=== PATIENT | female | born 1990 | race Caucasian/White ===

== ENCOUNTER 2016-11-21 03:24 | Emergency (ER) | payer SELFPAY ==
[2016-11-21 03:20] VITALS: O2SAT 85
[~2016-11-21 03:24] MED LIST: BACT800T5 PO
[2016-11-21 03:25] VITALS: BP 138/99; PULSE 166; RESP 40; O2SAT 85
[2016-11-21 03:35] VITALS: BP 128/51
[2016-11-21 03:53] LABS: I-STAT POTASSIUM 4.5 MMOL/L (3.5-4.9)
--- NOTE | 2016-11-21 04:16 | PD ---
HPI Chief Complaint: Respiratory distress Time Seen by Provider: 04:14 Travel History International Travel<30 days: No (unknown) Contact w/Intl Traveler<30days: No (unknown) History of Present Illness HPI 26yo F with PMH of IVDA and asthma here with respiratory distress. Pt was brought in [facility] and has been sob for 2 days. As per [facility], pt was saturating in the 70s at room air and was saturating in the 80s on 100% nonrebreather when she arrived. Pt had refused any albuterol treatments as per [facility] because she did not want how it made her feel. Pt did admit to IV dilaudid. Pt was in severe respiratory distress when she arrived and could not give any more information. Pt emergently intubated. PFSH Past Medical History Cancer: No Cardiovascular Problems: No Endocrine: No Genitourinary: No Immune Disorder: No Musculoskeletal: Yes Neurologic: Yes Psychiatric: No Reproductive: No Respiratory: No Migraines: Yes : 1 Para: 1 Past Surgical History Other Surgery: No Social History Alcohol Use: No Tobacco Use: Yes (half pack a day) Substance Use: Yes (DILAUDID DAILY, HEROIN UNTIL LAST YEAR, COKE OCCASIONALLY) Allergies-Medications (Allergen,Severity, Reaction): Coded Allergies: *MDRO Multi-Drug Resistant Organism (Verified Adverse Reaction, Unknown, 07/26/16) MRSA (chest wound) - 08/2014 MRSA PCR Screen POSITIVE - 09/01/2015 Reported Meds & Prescriptions Reported Meds & Active Scripts Active Bactrim DS (Sulfamethoxazole-Trimethoprim) 800-160 Mg Tab 1 Tab PO BID Review of Systems ROS Limitations: Clinical Condition Physical Exam Narrative GENERAL: 26yo F in severe respiratory distress. SKIN: Pale and diaphoretic. HEAD: Atraumatic. Normocephalic. NECK: Trachea midline. No JVD. CARDIOVASCULAR: Tachycardic. RESPIRATORY: + suprasternal accessory muscle use. Poor air movement. Decreased breath sounds in both lungs with some wheezing. Pt is very tachypneic and unable to answer more than a word at a time. Saturating in the low to mid 80s on 100% nonrebreather mask. GASTROINTESTINAL: Abdomen soft, non-tender, nondistended. No rebound tenderness or guarding. MUSCULOSKELETAL: No obvious deformities. No clubbing. No cyanosis. No edema. Although there are multiple scars noted in extremities. NEUROLOGICAL: Awake and alert but in distress. Pt is tripoding and unable to assess further. Data Data Last Documented VS Vital Signs Date Time Temp Pulse Resp B/P Pulse Ox O2 Delivery O2 Flow Rate FiO2 11/21/16 03:35 128/51 11/21/16 03:25 166 40 85 Non-Rebreather 15 11/21/16 03:20 100 Orders I-Stat Creatinine (11/21/16 03:40) I-Stat Profile (11/21/16 03:40) Epinephrine (1:10,000) Inj (Epinephrine (11/21/16 05:00) Sodium Bicarbonate 8.4% Inj (Sodium Bica (11/21/16 05:00) Calcium Chloride Inj (Calcium Chloride I (11/21/16 05:00) Calcium Chloride Inj (Calcium Chloride I (11/21/16 05:00) Epinephrine (1:10,000) Inj (Epinephrine (11/21/16 05:00) Magnesium Sulfate Inj (Magnesium Sulfate (11/21/16 05:00) Naloxone Inj (Narcan Inj) (11/21/16 05:00) Sodium Bicarbonate 8.4% Inj (Sodium Bica (11/21/16 05:00) Labs Laboratory Tests Test 11/21/16 03:40 Bedside Hemoglobin 9.5 G/DL Bedside Hematocrit 28.0 % Bedside Sodium 120 MMOL/L Bedside Potassium 4.5 MMOL/L Bedside Chloride 84 MMOL/L Bedside Blood Urea Nitrogen 25 MG/DL Bedside Creatinine 1.2 MG/DL Bedside Glucose 188 MG/DL MDM Medical Decision Making Medical Screen Exam Complete: Yes Emergency Medical Condition: Yes Differential Diagnosis PE vs. pneumonia vs. asthma exacerbation Narrative Course 26yo F in respiratory distress. Pt was emergently intubated. NS IVF running. Pt then started to become bradycardic and was in asystole, PEA and CPR was started. Pt given 3mg of epinephrine, 1 amp of sodium bicarbonate, 1 gm of calcium chloride and return of spontaneous circulation was obtained. Epinephrine drip was being prepared. Then 11 minutes later, pt again became pulseless and CPR was started again. 3 more mg of epinephrine, 1 second amp of sodium bicarbonate, 1 second gm of calcium chloride was given. Pt was also given magnesium sulfate 2gm, narcan 2gm. When all these efforts were unsuccessful, I was suspicious of pulmonary embolism that resulted in the PEA arrest so 100mg of TPA was given. However, pt did not regain pulse. Bedside ultrasound was used and there was no cardiac activity. Time of was declared to be 4:11am. I attempted to call pt's mother but no answer. The charge nurse will attempt to contact family member again. There were no family or friends that accompanied that patient. Critical Care Narrative Aggregate critical care time was 40 minutes. Time to perform other separately billable procedures was not included in the critical care time. My time did not include minutes spent treating any other patients simultaneously or on activities that did not directly contribute to the patient's treatment. The services I provided to this patient were to treat and/or prevent clinically significant deterioration that could result in: . I provided critical care services requiring my management, as noted below: Chart data review, documentation time, medication orders and management, vital sign assessments/reviewing monitor data, ordering and reviewing lab tests, ordering and interpreting/reviewing x-rays and diagnostic studies, care of the patient. Procedures Procedure Narrative The patient was put in optimal position for the procedure. Rapid sequence intubation was initiated by me using 20 milligrams of etomidate IV and 100mg milligrams of succinylcholine IV. The patient was intubated with a 7.0 cuffed endotracheal tube after 2 attempts. Tube placement was confirmed by visualization of the tube and balloon passing through the cords, capnometry. Breath sounds were equal and well aerated bilaterally postintubation. No breath sounds over stomach. Patient tolerated procedure well. Diagnosis Primary Impression: Cardiac arrest Condition: HectorBelaNilda DO Nov 21, 2016 04:16
[2016-11-21] MEDS ORDERED: NALOXONE HCL 4 MG/10 ML MDV IV ONE (05:00)
[2016-11-21] MEDS ORDERED: EPINEPHrine HCL (1:10,000) 1 MG/10 ML SYRINGE IV ONE ×2 (05:00)
[2016-11-21] MEDS ORDERED: MAGNESIUM SULFATE 40 MEQ/10 ML VIAL IV ONE (05:00)
[2016-11-21] MEDS ORDERED: SODIUM BICARBONATE 8.4% INJ 50 MEQ/50 ML SYR IV ONE ×2 (05:00)
[2016-11-21] MEDS ORDERED: CALCIUM CHLORIDE 10% SOLN 1 GRAM/10 ML SYR IV ONE ×2 (05:00)
== END 2016-11-21 07:58 | disposition expired ==
LOC: NEPE 03:24 → NEPI 07:58
DX: I46.9 Cardiac arrest, cause unspecified (principal); R06.00 Dyspnea, unspecified; F17.200 Nicotine dependence, unspecified, uncomplicated; Z87.39 Personal history of other diseases of the musculoskeletal system and connective tissue; Z86.69 Personal history of other diseases of the nervous system and sense organs; Z87.09 Personal history of other diseases of the respiratory system
CPT/HCPCS: 31500; 82435; 82565; 82947; 84132; 84295; 84520; 92950; 99291; J0171; J2310; J3475